=== PATIENT | female | born 1950 | race African-American/Black ===

== ENCOUNTER 2018-06-26 19:03 | Emergency (ER) | payer MEDICARE, MEDICAID ==
--- NOTE | 2018-06-26 19:21 | ED Physician Chart ---
ED Chief Complaint/HPI - Patient Information Date Seen:: 06/26/18 Time Seen:: 19:17 Chief Complaint:: RIGHT KNEE INJURY History of Present Illness:: THIS IS A 67 YR OLD FEMALE WHO STATES THAT SHE HEARD KNEE POP FROM A FALL. SHE ALSO IS OBESE AND FELL ON THAT KNEE LAST WEEK. SHE ADMITS TO HAVING HYPERTENSION. Allergies:: Allergies Allergy/AdvReac Type Severity Reaction Status Date / Time No Known Allergies Allergy Verified 06/26/18 19:14 Vitals:: Vital Signs - 8 hr 06/26/18 19:10 Temp 97.6 F HR 65 RR 15 BP 152/62 O2 Sat % 99 Historian:: Patient Review:: Nurse's Note Reviewed ED Review of Systems - Review of Systems Musculoskeletal: Bone or joint pain (RIGHT KNEE SWELLING AND PAINFUL LIMITED ROM ) ED Past Medical History - Past Medical History Obtainable: Yes Past Medical History: HTN Family History: None Social History: Non Smoker, No Alcohol, No Drug Use Surgical History: None Psychiatricy History: None Medication: Reviewed Family Medical History - Family Member Daughter History Unknown: Yes Living Status: Still Living ED Physical Exam - Physical Examination General/Constitutional: Awake, Well-developed, well-nourished, Alert, No distress, GCS 15, Non-toxic appearing, Ambulatory Head: Atraumatic Eyes: Lids, conjuctiva normal, PERRL, EOMI Skin: Nl inspection, No rash, No skin lesions, No ecchymosis, Well hydrated, No lymphadenopathy ENMT: External ears, nose nl, Nasal exam nl, Lips, teeth, gums nl Neck: Nontender, Full ROM w/o pain, No JVD, No nuchal rigidity, No bruit, No mass, No stridor Respiratory: Nl effort/Exclusion, Clear to Auscultation, No Wheeze/Rhonchi/Rales Cardio Vascular: RRR, No murmur, gallop, rubs, NL S1 S2 GI: No tenderness/rebounding/guarding, No organomegaly, No hernia, Normal BS's, Nondistended, No mass/bruits, No McBurney tenderness : No CVA tenderness Extremities: No tenderness or effusion, Full ROM, normal strength in all extremities, No edema, Normal digits & nails Other Extremities comments:: THE RIGHT KNEE IS SLIGHTLY SWOLLEN AND THERE IS LIMITED ROM BECAUSE OF PAIN. Neuro/Psych: Alert/oriented, DTR's symmetric, Normal sensory exam, Normal motor strength, Judgement/insight normal, Mood normal, Normal gait, No focal deficits Misc: Normal back, No paraspinal tenderness ED Labs/Radiology/EKG Results - Radiology Results Results: ct scan of the right lower extremity= effusion noted in the knee and MRI RECOMMEND. ED Assessment - Assessment General Assessment: RIGHT KNEE DERANGEMENT ED Septic Shock - . Is Septic Shock (SBP<90, OR Lactate>4 mmol\L) present?: No - <6hrs of presentation: Vital Signs: Vital Signs - 8 hr 06/26/18 19:10 Temp 97.6 F HR 65 RR 15 BP 152/62 O2 Sat % 99 ED Reassessment (Disposition) - Reassessment Reassessment Condition:: Improved - Diagnosis Diagnosis:: RIGHT KNEE STRAIN WITH AN EFFUSION - Aftercare/Follow up Instructions Aftercare/Follow-Up Instructions:: Counseled pt regarding lab results/diagnosis & need follow up, Refer to Discharge Instructions, Counseled pt & family regarding lab results/diagnosis & need follow up - Patient Disposition Discharge/Transfer:: Home Condition at Disposition:: Improved
[2018-06-26] MEDS ORDERED: HYDROmorphone 1 mg/mL 1mL Syr IM STA (21:04)
[2018-06-26] MEDS ORDERED: HYDROmorphone 1 mg/mL 1mL Syr ONE (21:08)
--- NOTE | 2018-06-27 11:21 | Diagnostic Imaging Report ---
CT of the right knee without IV contrast History: Trauma Comparison: None Total DLP to 82, CTD I 7.3 patent technique: Axial images were obtained from the distal femur to the proximal tibia without IV contrast. Multiplanar reconstructions were made. Findings: Exam is limited due to patient positioning. There are advanced degenerative changes pancreas of the medial knee compartment with moderate to advanced joint space loss. Diffuse marginal osteophytic spurs are noted. There is may be slight abnormal alignment of the knee joint. Ligamentous injury cannot be excluded. There is also moderate size knee effusion. No gross fracture identified. Varicosities are seen. IMPRESSION: Limited exam due to positioning. No gross fracture identified, however, there may be slight abnormal alignment of the knee joint. Underlying ligamentous injury cannot be excluded. Consider further assessment with MRI Moderate knee effusion possibly posttraumatic. Again MRI may be obtained for further assessment.
== END 2018-06-26 21:50 | disposition home or self-care (01) ==
LOC: ER 19:03
DX: S86.911A Strain of unspecified muscle(s) and tendon(s) at lower leg level, right leg, initial encounter (principal); M25.461 Effusion, right knee; I10 Essential (primary) hypertension; W18.39XA Other fall on same level, initial encounter; Y93.89 Activity, other specified; Y92.89 Other specified places as the place of occurrence of the external cause; Y99.8 Other external cause status
CPT/HCPCS: 99284; 96372 ×2; 73700; Q0162; J1885; J1170; Z7502